=== PATIENT | male | born 1970 | race Caucasian/White ===

== ENCOUNTER 2020-08-16 11:49 | Emergency (ER) | payer MEDICAID ==
[~2020-08-16] VITALS: Ht 167.6 cm; Wt 83.5 kg
[2020-08-16 11:54] VITALS: BP 185/106
--- NOTE | 2020-08-16 11:55 | NUR ---
Patient to bed 6. RN evaluating the patient at bedside.
--- NOTE | 2020-08-16 12:13 | NUR ---
Dr. Cade is evaluating the patient at bedside.
--- NOTE | 2020-08-16 12:15 | NUR ---
49 Y/O MALE C/O DIZZINESS, HEADACHE, DRY MOUTH X YESTERDAY. PT STATES HE HAS FELT LIKE THIS WHEN SUGAR WAS ELEVATED IN THE PAST. WITH C/O OF NAUSEA, DIARRHEA, AND BLURRY VISION. DENIES ANY RECENT FEVER OR COUGH. MEDHX: DM, ANXIETY, PANIC ATTACKS NKA
[2020-08-16] MEDS ORDERED: diazePAM 5 MG TAB PO ONE (12:20)
[2020-08-16] MEDS ORDERED: CRUSHER, PILL MC ONE (12:25)
[2020-08-16 12:34] LABS: BASOPHILS # (AUTO) 0.1 K/uL (0.00-0.22); BASOPHILS % (AUTO) 0.9 % (0.0-2.0); EOSINOPHILS # (AUTO) 0.1 K/uL (0-0.4); EOSINOPHILS % (AUTO) 1.4 % (0.0-4.0); HEMATOCRIT 45.9 % (36-52); HEMOGLOBIN 15.5 g/dL (12.0-18.0); LYMPHOCYTES # (AUTO) 1.7 K/uL (2.0-11.5); LYMPHOCYTES % (AUTO) 22.4 % (20.5-51.1); MEAN CORPUSCULAR HEMOGLOBIN 32 pg (27-31); MEAN CORPUSCULAR HGB CONC 34 g/dL (33-37); MONOCYTES # (AUTO) 0.5 K/uL (0.8-1.0); MONOCYTES % (AUTO) 5.8 % (1.7-9.3); NEUTROPHILS # (AUTO) 5.4 K/uL (1.8-7.7); NEUTROPHILS % (AUTO) 69.5 % (42.2-75.2); PLATELET COUNT (AUTO) 323 K/uL (140-450); RED BLOOD CELL COUNT(AUTO) 4.88 MIL/uL (4.20-6.10); RED CELL DISTRIBUTION WIDTH 14.5 % (11.6-13.7); WHITE BLOOD COUNT (AUTO) 7.8 K/uL (4.8-10.8)
[2020-08-16 12:46] LABS: ANION GAP 16.5 (8-16); CARBON DIOXIDE 25.3 mmol/L (21-32); CREATININE 1.2 mg/dL (0.6-1.3); POTASSIUM 3.8 mmol/L (3.5-5.1)
[2020-08-16 12:52] LABS: ALBUMIN 3.7 g/dL (3.4-5.0); TOTAL BILIRUBIN 0.4 mg/dL (0.0-1.0)
[2020-08-16] MEDS ORDERED: MECL-303 PO (13:49)
[2020-08-16 14:04] VITALS: BP 147/83
--- NOTE | 2020-08-16 14:04 | NUR ---
Patient discharged with v/s stable. Written and verbal after care instructions given and explained. Patient alert, oriented and verbalized understanding of instructions. Ambulatory with steady gait. All questions addressed prior to discharge. ID band removed. Patient advised to follow up with PMD. Rx of MECLIZINE HCL given. Patient educated on indication of medication including possible reaction and side effects. Opportunity to ask questions provided and answered.
== END 2020-08-16 14:04 | disposition home or self-care (01) ==
LOC: MED 11:49
DX: F41.9 Anxiety disorder, unspecified (principal); R42 Dizziness and giddiness; F17.210 Nicotine dependence, cigarettes, uncomplicated; E11.9 Type 2 diabetes mellitus without complications; Z79.899 Other long term (current) drug therapy
CPT/HCPCS: 36415; 80053; 84484; 85025; 93005; 99283; 99284

== ENCOUNTER 2020-11-06 22:45 | Emergency (ER) | payer MEDICAID ==
[~2020-11-06] VITALS: Ht 170.2 cm; Wt 89.8 kg
[~2020-11-06 22:45] MED LIST: MECL-303 PO
[2020-11-06 23:20] VITALS: BP 150/98
--- NOTE | 2020-11-06 23:20 | NUR ---
TO [facility] AMBULATORY
--- NOTE | 2020-11-07 00:08 | NUR ---
SWAB FOR LILLY SENT TO LAB
--- NOTE | 2020-11-07 01:05 | NUR ---
PT ROADTESTED. PT ABLE TO AMBULATE UNASSISTED. GAIT IS SLOW BUT STEADY. DR. HICKS MADE AWARE
--- NOTE | 2020-11-07 01:10 | NUR ---
CALLED [facility] AT [phone] FOR A RIDE HOME FOR PT, NO ANSWER AT THIS TIME.
[2020-11-07] MEDS ORDERED: IBUP-2213 PO (01:20)
--- NOTE | 2020-11-07 01:24 | NUR ---
CALLED [facility] AT [phone] FOR A RIDE HOME FOR PT, NO ANSWER AT THIS TIME. PT NOTIFIED THAT [facility] WAS UNABLE TO BE REACHED.
[2020-11-07] MEDS ORDERED: AMOX-1000 PO (01:28)
== END 2020-11-07 01:33 | disposition home or self-care (01) ==
LOC: MED 22:45
DX: J02.9 Acute pharyngitis, unspecified (principal); Z20.822 Contact with and (suspected) exposure to COVID-19; E11.9 Type 2 diabetes mellitus without complications; F17.210 Nicotine dependence, cigarettes, uncomplicated; Z79.899 Other long term (current) drug therapy
CPT/HCPCS: 99283

== ENCOUNTER 2021-06-12 05:38 | Emergency (ER) | payer MEDICAID ==
[~2021-06-12] VITALS: Ht 170.2 cm; Wt 81.6 kg
[~2021-06-12 05:38] MED LIST changes: +AMOX-1000 PO; +IBUP-2213 PO
[2021-06-12 05:40] VITALS: BP 159/93
[2021-06-12] MEDS ORDERED: LOPERAMIDE 2 MG CAP PO ONE (06:20)
[2021-06-12] MEDS ORDERED: ONDA8TAB87 PO (07:04)
[2021-06-12] MEDS ORDERED: LORA10TA19 PO (07:04)
[2021-06-12 07:31] LABS: BASOPHILS % (AUTO) 0.6 % (0.0-2.0); EOSINOPHILS # (AUTO) 0.1 K/uL (0-0.4); EOSINOPHILS % (AUTO) 1.2 % (0.0-4.0); HEMATOCRIT 44.6 % (36-52); HEMOGLOBIN 14.9 g/dL (12.0-18.0); LYMPHOCYTES # (AUTO) 1.5 K/uL (2.0-11.5); LYMPHOCYTES % (AUTO) 21.5 % (20.5-51.1); MEAN CORPUSCULAR HEMOGLOBIN 31 pg (27-31); MEAN CORPUSCULAR HGB CONC 34 g/dL (33-37); MEAN CORPUSCULAR VOLUME 92.1 fL (80-94); MONOCYTES # (AUTO) 0.5 K/uL (0.8-1.0); MONOCYTES % (AUTO) 7.3 % (1.7-9.3); NEUTROPHILS # (AUTO) 4.7 K/uL (1.8-7.7); NEUTROPHILS % (AUTO) 69.4 % (42.2-75.2); PLATELET COUNT (AUTO) 409 K/uL (140-450); RED BLOOD CELL COUNT(AUTO) 4.84 MIL/uL (4.20-6.10); RED CELL DISTRIBUTION WIDTH 14.3 % (11.6-13.7); WHITE BLOOD COUNT (AUTO) 6.8 K/uL (4.8-10.8)
[2021-06-12 07:52] LABS: ALBUMIN 3.6 g/dL (3.4-5.0); ANION GAP 13.1 (8-16); CARBON DIOXIDE 26.9 mmol/L (21-32); CREATININE 1.1 mg/dL (0.6-1.3); TOTAL BILIRUBIN 0.3 mg/dL (0.0-1.0)
[2021-06-12] MEDS ORDERED: LOPERAMIDE 2 MG CAP ONE (09:03)
--- NOTE | 2021-06-12 09:25 | NUR ---
pt still unable to provide a urine sample.
--- NOTE | 2021-06-12 09:40 | NUR ---
Patient discharged with v/s stable. Written and verbal after care instructions given and explained. Patient alert, oriented and verbalized understanding of instructions. Ambulatory with steady gait. All questions addressed prior to discharge. Patient advised to follow up with PMD. Rx of loratidine and zofran given. Patient educated on indication of medication including possible reaction and side effects. Opportunity to ask questions provided and answered.
[2021-06-12 09:42] VITALS: BP 139/82
== END 2021-06-12 09:40 | disposition home or self-care (01) ==
LOC: MED 05:38
DX: E86.0 Dehydration (principal); J30.2 Other seasonal allergic rhinitis; E11.9 Type 2 diabetes mellitus without complications; Z79.899 Other long term (current) drug therapy
CPT/HCPCS: 36415; 80053; 81002; 83690; 84484; 85025; 93005; 99284

== ENCOUNTER 2021-09-27 12:06 | Emergency (ER) | payer MEDICAID ==
[~2021-09-27] VITALS: Ht 170.2 cm; Wt 79.4 kg
[~2021-09-27 12:06] MED LIST changes: +LORA10TA19 PO; +ONDA8TAB87 PO
[2021-09-27 12:22] VITALS: BP 192/64
--- NOTE | 2021-09-27 12:28 | NUR ---
PT TO [facility]
--- NOTE | 2021-09-27 13:20 | NUR ---
PT SEEN BY ROJELIO SCRUGGS
[2021-09-27] MEDS ORDERED: KETOROLAC 30 MG/ML VIAL IM SCH (13:35)
[2021-09-27] MEDS ORDERED: IBUP-2213 PO (13:39)
[2021-09-27] MEDS ORDERED: PROM118S5 PO (13:39)
[2021-09-27] MEDS ORDERED: FLONAS NS (13:39)
[2021-09-27] MEDS ORDERED: CYCL-711 PO (13:39)
--- NOTE | 2021-09-27 13:47 | NUR ---
Patient discharged with v/s stable. Written and verbal after care instructions given and explained. Patient alert, oriented and verbalized understanding of instructions. Ambulatory with steady gait. All questions addressed prior to discharge. ID band removed. Patient advised to follow up with PMD. Rx of FLEXRIL, FLONASE, MOTRIN, PROMETHAZINE SYRUP given. Patient educated on indication of medication including possible reaction and side effects. Opportunity to ask questions provided and answered.
== END 2021-09-27 13:47 | disposition home or self-care (01) ==
LOC: MED 12:06
DX: B34.9 Viral infection, unspecified (principal); Z20.822 Contact with and (suspected) exposure to COVID-19; R03.0 Elevated blood-pressure reading, without diagnosis of hypertension; E11.9 Type 2 diabetes mellitus without complications; M54.50 Low back pain, unspecified
CPT/HCPCS: 81002; 99283

== ENCOUNTER 2022-10-22 04:20 | Emergency (ER) | payer MEDICAID ==
[~2022-10-22] VITALS: Ht 175.3 cm; Wt 99.8 kg
[2022-10-22 04:20] VITALS: BP 170/99; PULSE 97; RESP 21; TEMP 97.3; O2SAT 97
[~2022-10-22 04:20] MED LIST changes: +CYCL-711 PO; +FLONAS NS; +PROM118S5 PO
[2022-10-22] MEDS ORDERED: NALOXONE PFS 2 MG/2 ML SYR ONE (04:24)
[2022-10-22] MEDS ORDERED: NALOXONE 0.4 MG/ML VIAL ONE (04:24)
[2022-10-22] MEDS ORDERED: LIDOCAINE 1% 500 MG/ 50 ML VIAL INJ ONE (04:35)
[2022-10-22] MEDS ORDERED: LIDOCAINE MPF 1% 5 ML ONE (04:45)
[2022-10-22 05:05] LABS: BASOPHILS # (AUTO) 0.1 K/uL (0.00-0.22); BASOPHILS % (AUTO) 0.9 % (0.0-2.0); EOSINOPHILS # (AUTO) 0.1 K/uL (0-0.4); EOSINOPHILS % (AUTO) 1.4 % (0.0-4.0); HEMATOCRIT 45.1 % (36-52); HEMOGLOBIN 14.9 g/dL (12.0-18.0); LYMPHOCYTES % (AUTO) 24.3 % (20.5-51.1); MEAN CORPUSCULAR HEMOGLOBIN 31 pg (27-31); MEAN CORPUSCULAR HGB CONC 33 g/dL (33-37); MEAN CORPUSCULAR VOLUME 92.4 fL (80-94); MONOCYTES # (AUTO) 0.4 K/uL (0.8-1.0); MONOCYTES % (AUTO) 4.9 % (1.7-9.3); NEUTROPHILS # (AUTO) 5.6 K/uL (1.8-7.7); NEUTROPHILS % (AUTO) 68.5 % (42.2-75.2); PLATELET COUNT (AUTO) 343 K/uL (140-450); RED BLOOD CELL COUNT(AUTO) 4.89 MIL/uL (4.20-6.10); WHITE BLOOD COUNT (AUTO) 8.2 K/uL (4.8-10.8)
[2022-10-22] MEDS ORDERED: NALOXONE 0.4 MG/ML VIAL IVP ONE (05:10)
[2022-10-22 05:19] LABS: ANION GAP 13.1 (8-16); CALCIUM 8.6 mg/dL (8.5-10.1); CARBON DIOXIDE 26.6 mmol/L (21-32); POTASSIUM 3.7 mmol/L (3.5-5.1)
[2022-10-22] MEDS ORDERED: NACL 0.9% 1,000 ML IV ONE (05:25)
[2022-10-22] MEDS ORDERED: BACITRACIN OINT 500 UNITS/GM PKT TP ONE ×2 (05:43→07:45)
[2022-10-22] MEDS ORDERED: ceFAZolin 1,000 MG VIAL ONE (05:52)
[2022-10-22 06:48] LABS: ALCOHOL, BLOOD < 3 mg/dL (<10)
[2022-10-22] MEDS ORDERED: KETOROLAC 30 MG/ML VIAL IVP ONE (07:45)
[2022-10-22 08:11] LABS: APPEARANCE,URINE CLEAR (CLEAR); BILIRUBIN,URINE NEGATIVE (NEGATIVE); BLOOD, URINE NEGATIVE (NEGATIVE); COLOR,URINE YELLOW (YELLOW); LEUKOCYTE ESTERASE ,URINE NEGATIVE (NEGATIVE); NITRITE, URINE NEGATIVE (NEGATIVE); PH,URINE 6.5 (5.0-9.0); PROTEIN,URINE NEGATIVE (NEGATIVE); UGLUCOSE NEGATIVE (NEGATIVE); UROBILINOGEN,URINE 0.2 EU/dL (0.2 - 1)
[2022-10-22 08:24] VITALS: O2SAT 100
[2022-10-22 08:28] LABS: AMPHETAMINE, URINE POSITIVE ng/ml (NEG <=1000); BARBITURATE, URINE NEGATIVE ng/ml (NEG <=200); BENZODIAZEPINE, URINE NEGATIVE ng/mL (NEG <=200); CANNABINOID, URINE NEGATIVE ng/mL (NEG <=50); COCAINE, URINE NEGATIVE ng/mL (NEG <=300); OPIATE, URINE NEGATIVE ng/mL (NEG <=2000); PHENCYCLIDINE SCREEN,URINE NEGATIVE ng/mL (NEG <=25)
[2022-10-22] MEDS ORDERED: ACET-8905 PO (08:36)
[2022-10-22] MEDS ORDERED: NAPR-1704 PO (08:36)
[2022-10-22] MEDS ORDERED: CEPH-588 PO (08:38)
[2022-10-22 11:15] VITALS: O2SAT 100
[2022-10-22 13:10] VITALS: BP 135/82; PULSE 82; RESP 21; TEMP 97.9; O2SAT 100
== END 2022-10-22 13:10 | disposition home or self-care (01) ==
LOC: MED 04:20
DX: S82.832A Other fracture of upper and lower end of left fibula, initial encounter for closed fracture (principal); S01.81XA Laceration without foreign body of other part of head, initial encounter; S60.221A Contusion of right hand, initial encounter; F10.129 Alcohol abuse with intoxication, unspecified; E11.9 Type 2 diabetes mellitus without complications; Z79.1 Long term (current) use of non-steroidal anti-inflammatories (NSAID); Z79.899 Other long term (current) drug therapy; Z79.2 Long term (current) use of antibiotics; Y90.9 Presence of alcohol in blood, level not specified; X58.XXXA Exposure to other specified factors, initial encounter; Y92.89 Other specified places as the place of occurrence of the external cause; Y93.89 Activity, other specified; Y99.8 Other external cause status
CPT/HCPCS: 12011; 29515; 36415; 70450; 70486; 71045; 72125; 72170; 73130; 73590; 73610; 73630; 80048; 80305; 81003; 84484; 85025; 90471; 90715; 93005; 96365; 96375; 99291; 99292; G0482; J0690; J1885; J2001; J2310; Q0092

== ENCOUNTER 2023-03-20 23:45 | Emergency (ER) | payer OTHER, MEDICAID ==
[~2023-03-20] VITALS: Ht 167.6 cm; Wt 83.0 kg
[~2023-03-20 23:45] MED LIST changes: +ACET-8905 PO; +CEPH-588 PO; +NAPR-1704 PO
[2023-03-21 00:10] VITALS: BP 160/98; PULSE 93; RESP 17; TEMP 98; O2SAT 97
[2023-03-21] MEDS ORDERED: NAPR-54 PO (02:24)
[2023-03-21] MEDS ORDERED: CEPH500C16 PO (02:24)
[2023-03-21 04:04] VITALS: BP 148/96; PULSE 72; RESP 16; O2SAT 98
== END 2023-03-21 04:03 | disposition home or self-care (01) ==
LOC: MED 23:45
DX: S80.11XA Contusion of right lower leg, initial encounter (principal); E11.9 Type 2 diabetes mellitus without complications; F17.210 Nicotine dependence, cigarettes, uncomplicated; Z79.899 Other long term (current) drug therapy; Z79.2 Long term (current) use of antibiotics; Z79.1 Long term (current) use of non-steroidal anti-inflammatories (NSAID); V23.49XA Other motorcycle driver injured in collision with car, pick-up truck or van in traffic accident, initial encounter; Y93.89 Activity, other specified; Y92.410 Unspecified street and highway as the place of occurrence of the external cause; Y99.8 Other external cause status
CPT/HCPCS: 73590; 99283; Q0092

== ENCOUNTER 2023-03-28 21:21 | Emergency (ER) | payer MEDICAID, OTHER ==
[~2023-03-28] VITALS: Ht 162.6 cm; Wt 83.9 kg
[~2023-03-28 21:21] MED LIST changes: +CEPH500C16 PO; +NAPR-54 PO
[2023-03-28 21:33] VITALS: BP 143/84; PULSE 110; RESP 20; TEMP 97.1; O2SAT 97
[2023-03-28] MEDS ORDERED: KETOROLAC 60 MG/2 ML VIAL IM ONE (21:45)
[2023-03-29] MEDS ORDERED: ACETAMINOPHEN EXTRA STRENGTH 500 MG TAB PO ONE (00:50)
[2023-03-29 02:00] VITALS: BP 139/81; PULSE 79; RESP 16; TEMP 97.5; O2SAT 99
== END 2023-03-29 02:00 | disposition home or self-care (01) ==
LOC: MED 21:21
DX: S39.012A Strain of muscle, fascia and tendon of lower back, initial encounter (principal); S46.911A Strain of unspecified muscle, fascia and tendon at shoulder and upper arm level, right arm, initial encounter; R51.9 Headache, unspecified; E11.9 Type 2 diabetes mellitus without complications; Z79.899 Other long term (current) drug therapy; Z79.2 Long term (current) use of antibiotics; Z79.1 Long term (current) use of non-steroidal anti-inflammatories (NSAID); V23.41XA Electric (assisted) bicycle driver injured in collision with car, pick-up truck or van in traffic accident, initial encounter; Y93.89 Activity, other specified; Y92.410 Unspecified street and highway as the place of occurrence of the external cause; Y99.8 Other external cause status
CPT/HCPCS: 70450; 72131; 73030; 96372; 99285; J1885; Q0092

== ENCOUNTER 2023-08-19 00:35 | Emergency (ER) | payer MEDICAID, OTHER ==
[~2023-08-19] VITALS: Ht 170.2 cm; Wt 79.4 kg
[~2023-08-19 00:35] MED LIST changes: +NAPR-337 PO; -NAPR-54 PO
[2023-08-19 00:47] VITALS: BP 139/91; PULSE 88; RESP 14; TEMP 97.6; O2SAT 99
[2023-08-19] MEDS ORDERED: LIDOCAINE MPF 1% 5 ML ONE (02:18)
[2023-08-19] MEDS ORDERED: cefTRIAXone 1,000 MG VIAL ONE (02:18)
[2023-08-19] MEDS: cefTRIAXone 1,000 MG in LIDOCAINE MPF 1% 2.1 ML IM ONE (02:27)
[2023-08-19] MEDS ORDERED: SULF-59 PO (02:51)
[2023-08-19] MEDS ORDERED: CHLO480L2 TP (02:51)
[2023-08-19 03:40] VITALS: BP 139/91; PULSE 88; RESP 14; TEMP 97.6; O2SAT 99
== END 2023-08-19 03:40 | disposition home or self-care (01) ==
LOC: MED 00:35
DX: L03.311 Cellulitis of abdominal wall (principal); E11.9 Type 2 diabetes mellitus without complications; I10 Essential (primary) hypertension; Z79.1 Long term (current) use of non-steroidal anti-inflammatories (NSAID); Z79.2 Long term (current) use of antibiotics; Z79.899 Other long term (current) drug therapy
CPT/HCPCS: 96372; 99283; J0696; J2001

== ENCOUNTER 2023-08-21 08:36 | Emergency (ER) | payer MEDICAID ==
[~2023-08-21] VITALS: Ht 170.2 cm; Wt 77.1 kg
[~2023-08-21 08:36] MED LIST changes: +CHLO480L2 TP; +SULF-59 PO
[2023-08-21 08:48] VITALS: BP 151/91; PULSE 85; RESP 18; TEMP 97.1; O2SAT 99
[2023-08-21] MEDS ORDERED: HYDR-5071 PO (09:24)
[2023-08-21 09:41] VITALS: BP 141/84; PULSE 81; RESP 16; TEMP 98.2; O2SAT 98
== END 2023-08-21 09:42 | disposition home or self-care (01) ==
LOC: MED 08:36
DX: L03.311 Cellulitis of abdominal wall (principal); E11.9 Type 2 diabetes mellitus without complications; I10 Essential (primary) hypertension; Z79.1 Long term (current) use of non-steroidal anti-inflammatories (NSAID); Z79.2 Long term (current) use of antibiotics; Z79.899 Other long term (current) drug therapy
CPT/HCPCS: 82948; 99284

== ENCOUNTER 2023-08-23 00:12 | Emergency (ER) | payer MEDICAID ==
[~2023-08-23] VITALS: Ht 170.2 cm; Wt 78.0 kg
[~2023-08-23 00:12] MED LIST changes: +HYDR-5071 PO
[2023-08-23 00:40] VITALS: BP 166/100; PULSE 96; RESP 20; TEMP 97.4; O2SAT 98
[2023-08-23] MEDS: lisinopriL 20 MG TAB PO ONE (01:30)
[2023-08-23] MEDS ORDERED: LISI-953 PO (03:05)
[2023-08-23 03:41] VITALS: BP 147/89; PULSE 108; RESP 15; TEMP 97.4; O2SAT 99
== END 2023-08-23 03:43 | disposition home or self-care (01) ==
LOC: MED 00:12
DX: I10 Essential (primary) hypertension (principal); E11.9 Type 2 diabetes mellitus without complications; Z79.4 Long term (current) use of insulin; Z79.899 Other long term (current) drug therapy
CPT/HCPCS: 99283; 99285